=== PATIENT | male | born 1980 ===

== ENCOUNTER 2017-01-13 04:59 | Emergency (ER) | payer SELFPAY ==
[2017-01-13 06:00] VITALS: BP 134/83
== END 2017-01-13 05:55 | disposition left against medical advice (07) ==
LOC: ED 04:59
DX: J02.9 Acute pharyngitis, unspecified (principal); Z53.21 Procedure and treatment not carried out due to patient leaving prior to being seen by health care provider

== ENCOUNTER 2017-06-02 18:29 | Emergency (ER) | payer SELFPAY ==
[2017-06-02 20:34] VITALS: BP 137/84
--- NOTE | 2017-06-02 21:38 | XRay Report ---
FINAL REPORT PROCEDURE: XR ANKLE 3+V LT TECHNIQUE: Left foot radiographs, AP, lateral, and oblique views. CPT 26132 HISTORY: Left Foot/Ankle Impact, pain, Get Report COMPARISON: No prior studies are available for comparison. FINDINGS: Fracture (s) and/or Dislocation(s): There is compression fracture of the calcaneus without displacement. Boehler's angle is decreased from 30-6 degrees. The tibia, fibula, talus and tarsal bones and metatarsal bones are intact.. Alignment: Normal . Joint space(s): Normal . Soft tissues: There is generalized soft tissue swelling.. Bone mineralization: Normal . Foreign bodies: None . Calcaneal spurring: None . IMPRESSION: Compression fracture of the calcaneus.
--- NOTE | 2017-06-02 21:42 | XRay Report ---
FINAL REPORT PROCEDURE: XR FOOT 3+V LT TECHNIQUE: LEFT foot radiographs, AP, lateral, and oblique views. CPT 67336 HISTORY: Left Foot/Ankle Impact, pain, Get Report COMPARISON: No prior studies are available for comparison. FINDINGS: Fracture (s) and/or Dislocation(s): There is a nondisplaced compression fracture of the calcaneus. Boehler's angle is 7 degrees.. Alignment: Normal . Joint space(s): Normal . Soft tissues: There is generalized soft tissue swelling.. Bone mineralization: Normal . Foreign bodies: None . Calcaneal spurring: None . IMPRESSION: Compressed fracture of the calcaneus..
[2017-06-03] MEDS ORDERED: NORCO 5/325 PO ONE (01:54)
[2017-06-03] MEDS ORDERED: MOTRIN PO ONE (01:54)
--- NOTE | 2017-06-03 01:57 | Emergency Department Report ---
ED Lower Extremity HPI - General Chief Complaint: Extremity Injury, Lower Stated Complaint: LT FOOT INJURY Time Seen by Provider: 06/03/17 01:36 Source: patient, family Mode of arrival: Ambulatory Limitations: No Limitations, Physical Limitation - History of Present Illness Initial Comments: This is a 37-year-old male. He is previously unknown to me. The patient presents to the ER with complaint of left calcaneus/heel pain for 3 weeks. Patient reports that he did a back flip on a trampoline 3 weeks ago, and since then has been having calcaneal pain. No other injuries. No other complaints. MD Complaint: foot injury -: Gradual, week(s) Injury: Foot: Left Type of Injury: blunt Place: home Severity: moderate Improves With: rest Worsens With: movement, palpation Context: fall, direct blow - Related Data Previous Rx's Medication Instructions Recorded Last Taken Type Ibuprofen [Motrin] 600 mg PO Q8H PRN #30 tablet 06/03/17 Unknown Rx oxyCODONE [Roxicodone] 5 mg PO Q6HR PRN #15 tablet 06/03/17 Unknown Rx Allergies Allergy/AdvReac Type Severity Reaction Status Date / Time No Known Allergies Allergy Unverified 01/13/17 05:53 ED Review of Systems ROS: Stated complaint: LT FOOT INJURY Other details as noted in HPI Constitutional: denies: fever Eyes: denies: vision change ENT: denies: epistaxis Respiratory: denies: cough Cardiovascular: denies: chest pain Gastrointestinal: denies: abdominal pain Musculoskeletal: arthralgia, myalgia Skin: denies: lesions Neurological: denies: weakness Psychiatric: denies: anxiety ED Past Medical Hx - Past Medical History Previous Medical History?: No - Surgical History Past Surgical History?: No - Social History Smoking Status: Current Every Day Smoker Substance Use Type: None - Medications Home Medications: Home Medications Medication Instructions Recorded Confirmed Last Taken Type Ibuprofen [Motrin] 600 mg PO Q8H PRN #30 tablet 06/03/17 Unknown Rx oxyCODONE [Roxicodone] 5 mg PO Q6HR PRN #15 tablet 06/03/17 Unknown Rx ED Physical Exam - General Limitations: No Limitations, Physical Limitation General appearance: alert, in no apparent distress - Head Head exam: Present: atraumatic, normocephalic - Eye Eye exam: Present: normal appearance, EOMI. Absent: nystagmus - ENT ENT exam: Present: normal exam, normal orophraynx, mucous membranes moist, normal external ear exam - Neck Neck exam: Present: normal inspection, full ROM. Absent: tenderness, meningismus - Respiratory Respiratory exam: Present: normal lung sounds bilaterally. Absent: respiratory distress, wheezes, rales, rhonchi, stridor, chest wall tenderness - Cardiovascular Cardiovascular Exam: Present: regular rate, normal rhythm, normal heart sounds. Absent: bradycardia, tachycardia, irregular rhythm, systolic murmur, diastolic murmur, rubs, gallop - GI/Abdominal GI/Abdominal exam: Present: soft, normal bowel sounds. Absent: distended, tenderness, guarding, rebound, rigid, pulsatile mass - Rectal Rectal exam: Present: deferred - Extremities Exam Extremities exam: Present: normal inspection, full ROM, tenderness (the left- sided calcaneus is tender. The compartments are soft. 2+ pulses are noted in the bilateral upper and lower extremities. The pelvis is stable. There is no long bony tenderness), normal capillary refill. Absent: pedal edema, joint swelling, calf tenderness - Back Exam Back exam: Present: normal inspection, full ROM. Absent: tenderness, CVA tenderness (R), CVA tenderness (L), muscle spasm, paraspinal tenderness, vertebral tenderness - Neurological Exam Neurological exam: Present: alert, oriented X3, other (Extraocular movements intact. Tongue midline. No facial droop. Facial sensation intact to light touch in the V1, V2, V3 distribution bilaterally. 5 and 5 strength in 4 extremities.. Sensation is intact to light touch in 4 extremities.). Absent: motor sensory deficit - Psychiatric Psychiatric exam: Present: normal affect, normal mood - Skin Skin exam: Present: warm, dry, intact, normal color. Absent: rash ED Course Vital Signs 06/02/17 06/03/17 19:30 01:45 Temperature 98.3 F Pulse Rate 85 Respiratory 18 16 Rate Blood Pressure 137/84 [Right] O2 Sat by Pulse 100 Oximetry ED Lower Extremity MDM - Lab Data Vital Signs 06/02/17 06/03/17 19:30 01:45 Temperature 98.3 F Pulse Rate 85 Respiratory 18 16 Rate Blood Pressure 137/84 [Right] O2 Sat by Pulse 100 Oximetry - Radiology Data Radiology results: report reviewed, image reviewed X-ray of the left foot/ankle demonstrates compression fracture of the left calcaneus. - Medical Decision Making Differential diagnosis: Sprain, strain, fracture, dislocation Assessment and plan: 37-year-old male with 3 weeks of subacute probable left- sided calcaneal compression fracture. He is afebrile with reassuring vital signs. He is already using crutches. He is given hard sole shoe, he will remain nonweightbearing, and he is instructed to follow up with outpatient orthopedics. He is instructed that it will likely take weeks to months to fully heal. Return precautions are reviewed. Critical care attestation.: If time is entered above; I have spent that time in minutes in the direct care of this critically ill patient, excluding procedure time. ED Disposition Clinical Impression: Calcaneus fracture, left Qualifiers: Encounter type: initial encounter Calcaneus location: unspecified portion of calcaneus Fracture type: closed Fracture alignment: nondisplaced Qualified Code( s): S92.002A - Unspecified fracture of left calcaneus, initial encounter for closed fracture Disposition: DC-01 TO HOME OR SELFCARE Is pt being admited?: No Does the pt Need Aspirin: No Condition: Stable Instructions: Calcaneal Fracture (ED) Additional Instructions: Remain nonweightbearing. Take the pain medication as directed. Ibuprofen/ Motrin is nonsedating. This medication can be taken at any time, and is suitable to be used when driving a motor vehicle. Oxycodone is sedating, and should not be used when driving motor vehicles, or when combining alcohol. Follow-up with an orthopedic surgeon within the next 7-10 days. Return to the [facility] with new pain, worsening pain, migration of pain, fevers, chills, chest pain, confusion, intractable nausea or vomiting, inability to tolerate liquid feeds. Prescriptions: Ibuprofen [Motrin] 600 mg PO Q8H PRN #30 tablet PRN Reason: Pain oxyCODONE [Roxicodone] 5 mg PO Q6HR PRN #15 tablet PRN Reason: Pain Referrals: PRIMARY CARE, [Primary Care Provider] - 3-5 Days NOÉ ZAMORA MD [Staff Physician] - 3-5 Days Forms: Work/School Release Form(ED)
== END 2017-06-03 02:07 | disposition home or self-care (01) ==
LOC: ED 18:29
DX: S92.002A Unspecified fracture of left calcaneus, initial encounter for closed fracture (principal); F17.200 Nicotine dependence, unspecified, uncomplicated; X58.XXXA Exposure to other specified factors, initial encounter; Y93.44 Activity, trampolining; Y99.8 Other external cause status; Y92.009 Unspecified place in unspecified non-institutional (private) residence as the place of occurrence of the external cause
CPT/HCPCS: 99283